=== PATIENT | female | born 1995 | race Caucasian/White ===

== ENCOUNTER 2024-12-26 07:50 | Inpatient (IN) ==
[2024-12-26] MEDS ORDERED: ACETAMINOPHEN 325 MG TAB PO PRN (08:09)
[2024-12-26] MEDS ORDERED: LIDOCAINE 1% LOCAL 20 ML VIAL INFIL PRN (08:09)
[2024-12-26] MEDS ORDERED: CALCIUM CARBONATE 500 MG CHEWABLE TAB PO PRN (08:09)
[2024-12-26 09:12] LABS: Hematocrit (blood only) 33.7 % (37.0-47.0); Hemoglobin 11.8 g/dl (12.0-16.0); Mean Corpuscular Hemoglobin 32.0 pg (25.0-34.0); Mean Corpuscular Volume 91.3 fL (80.0-100.0); Platelet Count 196 K/uL (130-400); RDW Standard Deviation 41.0 fL (36.4-46.3); Red Blood Count 3.69 M/uL (4.20-5.40); White Blood Count 10.94 K/ul (4.8-10.8)
--- NOTE | 2024-12-26 09:15 | Obstetrical Progress Note ---
Date of Service December 26, 2024 Assessment & Plan Admission and Anticipated Discharge Date Admission Date: December 26, 2024 Results & Data Vital Signs (Past 12 Hours) Vital Signs Temp Pulse BP 12/26/24 08:03 36.9 C 12/26/24 08:01 81 115/79
[2024-12-26] MEDS: LACTATED RINGER'S 1,000 ML IV PRN (09:16)
--- NOTE | 2024-12-26 09:16 | History & Physical Report ---
Date of Service December 26, 2024 Assessment & Plan (1) Encounter for induction of labor: Plan This is a 29 y/o at 40w 4d presenting today for induction of labor. Reed bulb placed Pitocin ordered Epidural as requested FHT monitoring - Category I NPO, IV fluids Regular I&O and vitals monitoring Admission and Anticipated Discharge Date Admission Date: December 26, 2024 History of Present Illness Chief Complaint: induction of labor Primary Care Provider: NO PCP Sarah Sivakumar is a 29 y/o currently at 40w 4d with an RHEA 12/21/24 as determined by LMP who is here for induction of labor. is complicated by small for gestational age. External FHT and external uterine monitors used; Category I tracing. normal FHT variability. Had regular appointments with OB. OB Labs: Blood Type O Positive 05/21/24 Antibody Screen NEGATIVE 05/21/24 Hgb 12.3 g/dl (12.0-16.0) 09/30/24 Hct 35.5 % (37.0-47.0) L 09/30/24 MCV 91.5 fL (80.0-100.0) 05/21/24 Plt Count 231 K/uL (130-400) 05/21/24 Rubella IgG Antibody Immune (Immune) 05/21/24 Treponema pallidum Ab Negative (Negative) 09/30/24 Hep Bs Antigen Negative (Negative) 05/21/24 Hepatitis C Antibody Negative (Negative) 05/21/24 HIV 1&2 Ab/P24 Ag 4thGn Negative (Negative) 05/21/24 Glucose 1 Hr 50 gm 88 mg/dl (70-130) 09/30/24 Maternal Serum AFP 25.7 ng/mL 07/09/24 OB Optional Labs: Chlamydia trachomatis RNA Not Detected (NotDetected) 05/21/24 Neisseria gonorrhoeae RNA Not Detected (NotDetected) 05/21/24 Alpha Fetoprotein Triple Screen SEE NOTE 07/09/24 Labs Reviewed: low risk panorama--akh neg [facility]--[facility] afp neg--[facility] Review of Systems Denies fever, chills, sweats Denies shortness of breath, difficulty breathing, chest pain, palpitations, chest pressure. Denies breast pain. Denies dysuria. Denies headache or changes in vision. Allergies Allergy/AdvReac Type Severity Reaction Status Date / Time No Known Allergies Allergy Verified 12/25/24 14:41 Home Medications Medication Instructions Recorded Confirmed Type albuterol 90 mcg/actuation aerosol mcg inhalation 09/27/24 12/25/24 History inhaler vits no.124-ferrous fum 1 tab PO DAILY 12/26/24 12/26/24 History 27 mg iron-folic acid 800 mcg tablet ( Vitamin) Patient History Medical History (Updated 12/26/24 @ 09:24 by Adele Kearney DO) Asthma Family History Mother Thyroid disease Other Parkinson disease Social History Smoking Status: Never smoker Do You Dip or Chew Tobacco: No; Hx Alcohol Use: No Hx Substance Use: No Preferred Language: Singaporean Communication Ability: Effective Crystal Attacher Required: No Beliefs That Will Affect Care: None marital status: marital status details: Rip (25) [phone] Current Living Situation: Spouse Current Living Situation Comment: , 1 dog current occupational status: employed current occupation: Ledger Clerk at [employer] Other Information That Helps Us Care for You: No Feels Safe at Home: Yes Safety Concerns: Feels Safe At This Time Review of Systems All systems reviewed & are unremarkable except as noted in HPI & below Physical Exam Physical Exam: General: Alert, oriented. No acute distress. Cardiac: Regular rate and rhythm, no murmurs/rubs/gallops. Respiratory: Clear to auscultation bilaterally a/p, no wheezes/rales/rhonchi. No increased work of breathing. Symmetrical chest rise. No respiratory distress. Abdomen: normal to inspection, soft, gravid. Pelvic: Dilation cm 2; Effacement 50 ; Station -[address] Betancur Lower Extremities: No lower extremity edema or swelling. No deep calf pain. Katerine's negative bilaterally Constitutional: WD/WN, vitals as above Results & Data Vital Signs (Past 12 Hours) Vital Signs Temp Pulse BP 12/26/24 08:03 36.9 C 12/26/24 08:01 81 115/79 Monitoring External Monitor Category I tracing Supervising Physician Co-Signing Physician Notes Resident Physician Supervision Note: I interviewed and examined the patient. Discussed with Dr. Kearney and agree with findings and plan as documented in the note. Any exceptions or clarifications are listed here: 29 yo G1 at 40 5/7 wga presents for iol. PNI: None. VSS, SVE /-2, post, med. EFW 7-8, cephalic. 35cc reed bulb placed after consent obtained, tolerated well. Will start pit. GBS neg, epidural prn Documented By: Wendy Betancur MD
[2024-12-26] MEDS: OXYTOCIN 30 UNITS/NSS 30 UNITS/500 ML BAG IV PRN ×2 (09:23→18:47)
--- NOTE | 2024-12-26 14:25 | Labor Progress Brief Note ---
Date of Service December 26, 2024 Subjective uncomfortable but manageable Assessment & Plan (1) Encounter for induction of labor: Plan: 29 yo G1 at 40 5/7 ga presents for iol VSS Fetus cat 1 Labor - pit at 12, bulb palpated in vagina and removed. offered arom and pt desires, tolerated well GBS neg epidural rpn Admission and Anticipated Discharge Date Admission Date: December 26, 2024 Physical Exam Genitourinary: Manual OB Exam: + cervical dilation 4 cm, + cervical effacement 70%, + station -2 and + amniotic fluid (arom clear) OB Exam Monitor Tracing: + external FHT monitor used, + external uterine monitor used (q3-4) and + category I (120/mod/+accel/-decel) Results & Data Vital Signs (Past 12 Hours) Vital Signs Temp Pulse BP 12/26/24 13:40 57 L 12/26/24 13:40 129/66 12/26/24 12:44 98.6 F 12/26/24 08:03 98.4 F 12/26/24 08:01 81 115/79 12/26/24 08:00 98.4 F 12/26/24 08:00 98.4 F Coding Level of Care Code None Diagnoses Encounter for induction of labor Z34.90
[2024-12-26] MEDS: fentANYL 2 MCG/ML BUPIVacaine 0.125%-NSS 100ML BAG ONE (15:27)
[2024-12-26] MEDS: BUPIVACAINE 0.25% PF 30 ML VIAL ONE (15:28)
[2024-12-26] MEDS: LIDOCAINE 2%/EPINEPHRINE 1:200,000 20 ML PF ONE (15:28)
[2024-12-26] MEDS ORDERED: SODIUM CHLORIDE 0.9% PF INJ 10 ML VIAL EPI PRN (15:52)
[2024-12-26] MEDS ORDERED: ROPIVACAINE 0.5% PF 5 MG/ML 20 ML VIAL EPI PRN (15:52)
[2024-12-26] MEDS ORDERED: NALBUPHINE HCL INJ 10 MG/ML AMP IV PRN (15:52)
[2024-12-26] MEDS ORDERED: NALOXONE HCL 1 MG in SODIUM CHLORIDE 0.9% 1,000 ML IV PRN (15:52)
[2024-12-26] MEDS ORDERED: LIDOCAINE 2% MPF LOCAL 5 ML VIAL EPI PRN (15:52)
[2024-12-26] MEDS ORDERED: diphenhydrAMINE 50 MG/ML VIAL IV PRN (15:52)
[2024-12-26] MEDS ORDERED: fentANYL 2 MCG/ML BUPIVacaine 0.125%-NSS 100ML BAG EPI PRN (15:52)
[2024-12-26] MEDS ORDERED: BUPIVACAINE 0.25% PF 30 ML VIAL EPI PRN (15:52)
[2024-12-26] MEDS ORDERED: NALOXONE HCL 0.4 MG/1 ML VIAL/CARP IV PRN (15:52)
--- NOTE | 2024-12-26 15:52 | Anesthesiology Consultation ---
Date of Service December 26, 2024 Assessment & Plan Chart Review Chart Review: Acceptable Risk for Labor Epidural Consults Requested none History Height/Weight Height: 5 ft 1 in Weight: 78.471 kg Allergies Allergy/AdvReac Type Severity Reaction Status Date / Time No Known Allergies Allergy Verified 12/25/24 14:41 Medications Home Medications Medication Instructions Recorded Confirmed Last Taken albuterol 90 mcg/actuation aerosol mcg inhalation 09/27/24 12/25/24 1 Day Ago inhaler ~09/26/24 vits no.124-ferrous fum 1 tab PO DAILY 12/26/24 12/26/24 12/26/24 27 mg iron-folic acid 800 mcg tablet ( Vitamin) Active Medications Generic Name Dose Route Start Last Admin Trade Name Freq PRN Reason Stop Dose Admin Lactated Ringer's 1,000 mls @ 125 mls/hr 12/26/24 08:09 12/26/24 15:35 Lr IV 12/28/24 08:08 125 mls/hr .Q8H PRN Infusion L&D Protocol Protocol Oxytocin 30 units in 500 mls @ 12 mls/hr 12/26/24 08:50 12/26/24 13:47 Pitocin 30 Units/Nss IV 12/28/24 08:49 0.72 units/hr .Q24H PRN 12 mls/hr Labor Induction/Augmentation Titration Protocol 0.72 UNITS/HR Past Medical History Medical History (Updated 12/26/24 @ 09:24 by Adele Kearney DO) Asthma Past Family History Family History Mother Thyroid disease Other Parkinson disease Social History Smoking Status: Never smoker Do You Dip or Chew Tobacco: No Hx Alcohol Use: No Hx Substance Use: No Physical Exam Vital Signs Last Vital Signs Temp 37.0 C 12/26/24 12:44 Pulse 56 L 12/26/24 15:43 Resp 16 12/26/24 15:35 BP 112/67 12/26/24 15:43 Pulse Ox 92 12/26/24 15:42 Testing Laboratory Results 12/26/24 08:26
[2024-12-26] MEDS: BUPIVACAINE 0.25% PF 30 ML VIAL EPI STA (16:21)
[2024-12-26] MEDS: SODIUM CHLORIDE 0.9% PF INJ 10 ML VIAL ONE (16:21)
[2024-12-26] MEDS: LIDOCAINE 2%/EPINEPHRINE 1:200,000 20 ML PF EPI STA (16:22)
[2024-12-26] MEDS: SODIUM CHLORIDE 0.9% PF INJ 10 ML VIAL EPI STA (16:22)
--- NOTE | 2024-12-26 18:45 | Delivery Summary ---
Vaginal Delivery Summary Date of Service December 26, 2024 Vaginal Delivery Summary and 2nd Degree LAC PREOPERATIVE DIAGNOSIS: 1. Single intrauterine at 40 5/7 wga 2. Post-dates IOL POSTOPERATIVE DIAGNOSIS: 1. Single intrauterine at 40 5/7 wga 2. Post-dates IOL 3. Delivered PROCEDURE: 1. Normal spontaneous vaginal delivery. SURGEON: Wendy Betancur MD ANESTHESIA: Epidural. QUANTITATIVE BLOOD LOSS: 107 mL FLUIDS: Continuous LR. URINE OUTPUT: 200cc by straight cath after procedure COMPLICATIONS: None. CONDITION: Stable. INDICATIONS: 29 yo G1 at 40 5/7 wga presents for post-dates IOL. Induction was begun with reed bulb and pitocin. Following bulb expulsion, she underwent arom. She received an epidural and progressed to complete and desired to push FINDINGS: A viable female infant, weight pending with Apgars of 8 and 9 at 1 and 5 minutes respectively. SPECIMEN: Cord blood OPERATIVE REPORT: The patient progressed to 10 cm, 100% effaced and +2 station, pushed over intact perineum with anesthesia to deliver a viable female infant, weight and Apgars as above. Head of delivered in TROY position with compound arm. No nuchal cord was present. Body and shoulders were delivered without difficulty. was delivered to maternal abdomen and nursing staff. Delayed cord clamping was performed for 60 seconds. Cord was clamped and cut. Cord blood was obtained. Placenta delivered spontaneously intact with 3-vessel cord. IV oxytocin and fundal massage were given for excellent hemostasis. Vagina, cervix, perineum, and placenta were inspected. A second degree and left labial laceration were repaired using 3-0 and 4-0 vicryl in the usual fashion. There was excellent hemostasis. Sponge and needle counts correct x2. No sponges were left behind. Mother and stable in immediate period. [facility] [place] Vaginal Delivery Codes: 66449 global code for the antepartum, delivery, and post- Delivery Type Details: and 2nd Degree LAC
[2024-12-26] MEDS ORDERED: OXYTOCIN 30 UNITS/NSS 30 UNITS/500 ML BAG IV PRN (18:51)
[2024-12-26] MEDS ORDERED: DIPHTHER/TETAN/PERTUS Vaccine (Tdap, Adol/Adult) 0.5mL IM ONE (18:51)
[2024-12-26] MEDS ORDERED: HYDROCORTISONE ACETATE 25 MG SUPP PR PRN (18:51)
[2024-12-26] MEDS ORDERED: ALBUTEROL HFA INHALER 8.5 GM INH PRN (19:00)
[2024-12-26] MEDS: BENZOCAINE 20% SPRY 85 APPLN/85 GM CAN EXT PRN (20:52)
[2024-12-26] MEDS: DOCUSATE SODIUM 100 MG CAP PO SCH (20:52)
[2024-12-26 21:09] VITALS: RESP 16
--- NOTE | 2024-12-27 00:10 | Anesthesia Procedure Note ---
Date of Service December 27, 2024 Anesthesia Post Epidural Note Vital Signs Vital Signs: Temp Pulse Resp BP Pulse Ox O2 Del Method 37.1 C 65 16 106/66 97 Room Air 12/26/24 21:08 12/26/24 21:08 12/26/24 21:08 12/26/24 21:08 12/26/24 21:08 12/26/24 21:08 Pain Intensity Abdomen: Pain Intensity: 8 Notes Mental Status: alert / awake / arousable Nausea / Vomiting: adequately controlled Pain: adequately controlled Airway Patency, RR, SpO2: stable & adequate BP & HR: stable & adequate Hydration State: stable & adequate Neuraxial Anesthesia: was administered and sensory block is resolving Anesthetic Complications: no major complications apparent and Pt Satisfied with anesthetic care Epidural: Removed without complications and With tip intact
[2024-12-27] MEDS: ACETAMINOPHEN 325 MG TAB PO PRN (03:47)
--- NOTE | 2024-12-27 05:06 | Obstetrical Progress Note ---
Date of Service December 27, 2024 Assessment & Plan (1) examination following vaginal delivery: Plan 29 y/p day 1 s/p . Feels well today. Vital signs stable Continue post- care Encourage ambulation and Pain controlled with ibuprofen Hgb stable Anticipate discharge home tomorrow, follow up with Dr. Betancur in 6 weeks. Admission and Anticipated Discharge Date Admission Date: December 26, 2024 Anticipated date of discharge: 12/28/24 Supervising Physician Co-Signing Physician Notes Resident Physician Supervision Note: I interviewed and examined the patient. Discussed with Dr. Kearney and agree with findings and plan as documented in the note. Any exceptions or clarifications are listed here: PP1 s/p , doing well. VSS, exam benign. Continue routine care Documented By: Wendy Betancur MD Omar Shaver is a 29 y/o post- day 1 s/p . Ambulation: ambulating normally Voiding: no voiding problems Passing Gas:: Yes Diet Tolerance:: regular diet Lochia:: Small Feeding Type:: bottle feeding Current Pain Level: 1/10 Resting comfortably this AM in NAD. Denies MATHEWS, CP, SOB, N/V/D, LE pain/swelling. Review of Systems Review of Systems: All systems reviewed & are unremarkable except as noted in HPI & below Physical Exam Physical Exam: General: patient resting comfortably, NAD, non-toxic in appearance, AA&O x 4, answers questions appropriately. Skin: warm, dry, intact HEENT: NC/AT, anicteric sclera, conjunctiva without injection, moist mucus membranes. Heart: +S1/S2, regular, no m/r/g Lungs: equal air entry bilaterally, no rales/rhonchi/wheezes Abd: +BS, soft, NT/ND, uterine fundus firm, nontender at umbilicus, Ext: warm, no clubbing/cyanosis or edema, Katerine's neg. Neuro: nonfocal, patient AA&O x 4, speech intact, no facial droop, moving all extremities on command. Constitutional: WD/WN, vitals as above Results & Data Vital Signs (Past 12 Hours) Vital Signs Temp Pulse Pulse Resp BP BP Pulse Ox 12/27/24 03:22 36.8 C 62 16 118/71 96 07/25/25 21:08 37.1 C 65 16 106/66 97 12/26/24 20:45 18 12/26/24 20:43 83 12/26/24 20:43 121/69 12/26/24 20:28 76 12/26/24 20:28 106/62 12/26/24 20:15 18 12/26/24 20:13 69 12/26/24 20:13 105/63 12/26/24 19:58 64 12/26/24 19:58 110/70 12/26/24 19:45 16 12/26/24 19:43 71 12/26/24 19:43 120/73 12/26/24 19:30 18 12/26/24 19:28 61 12/26/24 19:28 116/62 12/26/24 19:15 16 12/26/24 19:13 190 H 12/26/24 19:13 102/54 L 12/26/24 19:00 16 12/26/24 19:00 97 12/26/24 19:00 69 12/26/24 18:58 69 12/26/24 18:58 117/66 12/26/24 18:55 97 12/26/24 18:55 67 12/26/24 18:50 97 12/26/24 18:50 72 12/26/24 18:45 36.9 C 12/26/24 18:45 97 12/26/24 18:45 65 12/26/24 18:43 71 12/26/24 18:43 115/61 12/26/24 18:41 92 12/26/24 18:41 70 12/26/24 18:40 98 12/26/24 18:40 73 12/26/24 18:35 97 12/26/24 18:35 68 12/26/24 18:34 90 12/26/24 18:34 68 12/26/24 18:30 97 12/26/24 18:30 66 12/26/24 18:30 67 12/26/24 18:30 115/63 12/26/24 18:25 98 12/26/24 18:25 70 12/26/24 18:20 96 12/26/24 18:20 75 12/26/24 18:15 98 12/26/24 18:15 61 12/26/24 18:13 93 12/26/24 18:13 93 H 12/26/24 18:10 97 12/26/24 18:10 102 H 12/26/24 18:07 86 L 12/26/24 18:07 122 H 12/26/24 18:05 98 12/26/24 18:05 90 12/26/24 18:00 97 12/26/24 18:00 128 H 12/26/24 17:59 69 12/26/24 17:59 113/63 12/26/24 17:55 99 12/26/24 17:55 107 H 12/26/24 17:50 99 12/26/24 17:50 101 H 12/26/24 17:47 88 L 12/26/24 17:47 110 H 12/26/24 17:46 78 12/26/24 17:46 114/67 12/26/24 17:45 99 12/26/24 17:45 79 12/26/24 17:40 99 12/26/24 17:40 91 H 12/26/24 17:39 91 12/26/24 17:39 91 H 12/26/24 17:35 99 12/26/24 17:35 96 H 12/26/24 17:31 85 12/26/24 17:31 114/83 12/26/24 17:30 99 12/26/24 17:30 89 12/26/24 17:27 87 L 12/26/24 17:27 65 12/26/24 17:25 100 12/26/24 17:25 82 12/26/24 17:20 100 12/26/24 17:20 87 12/26/24 17:18 92 12/26/24 17:18 101 H 12/26/24 17:16 68 12/26/24 17:16 109/63 12/26/24 17:15 100 12/26/24 17:15 68 12/26/24 17:10 100 12/26/24 17:10 80 12/26/24 17:10 90 12/26/24 17:10 69 12/26/24 17:05 96 12/26/24 17:05 71 O2 Del Method 12/27/24 03:22 Room Air 12/26/24 21:08 Room Air 12/26/24 20:45 12/26/24 20:43 12/26/24 20:43 12/26/24 20:28 12/26/24 20:28 12/26/24 20:15 12/26/24 20:13 12/26/24 20:13 12/26/24 19:58 12/26/24 19:58 12/26/24 19:45 12/26/24 19:43 12/26/24 19:43 12/26/24 19:30 12/26/24 19:28 12/26/24 19:28 12/26/24 19:15 12/26/24 19:13 12/26/24 19:13 12/26/24 19:00 12/26/24 19:00 12/26/24 19:00 12/26/24 18:58 12/26/24 18:58 12/26/24 18:55 12/26/24 18:55 12/26/24 18:50 12/26/24 18:50 12/26/24 18:45 12/26/24 18:45 12/26/24 18:45 12/26/24 18:43 12/26/24 18:43 12/26/24 18:41 12/26/24 18:41 12/26/24 18:40 12/26/24 18:40 12/26/24 18:35 12/26/24 18:35 12/26/24 18:34 12/26/24 18:34 12/26/24 18:30 12/26/24 18:30 12/26/24 18:30 12/26/24 18:30 12/26/24 18:25 12/26/24 18:25 12/26/24 18:20 12/26/24 18:20 12/26/24 18:15 12/26/24 18:15 12/26/24 18:13 12/26/24 18:13 12/26/24 18:10 12/26/24 18:10 12/26/24 18:07 12/26/24 18:07 12/26/24 18:05 12/26/24 18:05 12/26/24 18:00 12/26/24 18:00 12/26/24 17:59 12/26/24 17:59 12/26/24 17:55 12/26/24 17:55 12/26/24 17:50 12/26/24 17:50 12/26/24 17:47 12/26/24 17:47 12/26/24 17:46 12/26/24 17:46 12/26/24 17:45 12/26/24 17:45 12/26/24 17:40 12/26/24 17:40 12/26/24 17:39 12/26/24 17:39 12/26/24 17:35 12/26/24 17:35 12/26/24 17:31 12/26/24 17:31 12/26/24 17:30 12/26/24 17:30 12/26/24 17:27 12/26/24 17:27 12/26/24 17:25 12/26/24 17:25 12/26/24 17:20 12/26/24 17:20 12/26/24 17:18 12/26/24 17:18 12/26/24 17:16 12/26/24 17:16 12/26/24 17:15 12/26/24 17:15 12/26/24 17:10 12/26/24 17:10 12/26/24 17:10 12/26/24 17:10 12/26/24 17:05 12/26/24 17:05
[2024-12-27] MEDS: IBUPROFEN 600 MG TAB PO PRN (09:08)
[2024-12-27] MEDS: PRENATAL VITAMIN 1 TAB PO SCH (09:08)
--- NOTE | 2024-12-28 07:57 | Obstetrical Progress Note ---
Date of Service December 28, 2024 Assessment & Plan (1) examination following vaginal delivery: Subjective Ambulation: ambulating normally Voiding: no voiding problems Passing Gas:: Yes Diet Tolerance:: regular diet Lochia:: Small Feeding Type:: bottle feeding Current Pain Level(1-10): 0 Physical Exam Constitutional WD/WN, vitals as above Eyes PERRL, conjunctivae normal, anicteric sclerae ENMT external ear and nose normal, oropharynx normal Neck trachea midline, no thyromegaly Respiratory normal respiratory effort and able to speak in complete sentences; no respirat ory distress, no labored breathing and does not use accessory muscles Cardiovascular Rate/Rhythm: regular rate and regular rhythm Extremities: no calf tenderness and no pedal edema Chest (Breasts) Breast: normal inspection of breasts Gastrointestinal (Abdomen) Inspection/Auscultation: abdomen normal to inspection; abdomen not distended Musculoskeletal no cyanosis or clubbing, extremities motor strength 5/5 Skin no rashes, warm and dry Neurologic patellar DTR's 2+ bilat, sensation intact Psychiatric A+Ox3, euthymic affect Genitourinary Speculum/Bimanual Exam: uterus nontender OB Exam Abdomen: + fundal height (at umbilicus) Fundus: + firm Results & Data Vital Signs (Past 12 Hours) Vital Signs Temp Pulse Resp BP Pulse Ox O2 Del Method 12/27/24 23:02 98.2 F 60 16 116/77 97 Room Air 12/27/24 20:00 80 16 106/68 97 Room Air
[2024-12-28 08:29] VITALS: BP 128/83; PULSE 59; TEMP 97.9; O2SAT 98
== END 2024-12-28 13:00 | disposition home or self-care (01) | DRG 807 ==
LOC: 4S1 07:50 → 4E2 21:18